=== PATIENT | female | born 1975 | race African-American/Black ===

== ENCOUNTER 2016-11-01 10:42 | Emergency (ER) | payer OTHER ==
[~2016-11-01] VITALS: Ht 175.3 cm; Wt 104.3 kg
[~2016-11-01 10:42] MED LIST: HYDROXYZINE HCL25 MG PO; PEPCID20 MG PO; PREDNISONE 20MG20 MG PO
--- NOTE | 2016-11-01 11:29 | ED CARDIAC/CP/PALPITATIONS ---
History of Present Illness General Chief Complaint: Chest Pain Stated Complaint: BIBA CHEST PAIN Source: patient, old records, EMS Exam Limitations: no limitations Allergies Coded Allergies: Sulfa (Sulfonamide Antibiotics) (Severe, THROAT CLOSURE 11/01/16) morphine (Severe, ANAPHYLAXIS 11/01/16) shellfish derived (Severe, ANAPHYLAXIS 11/01/16) venom-honey bee (Severe, ANAPHYLAXIS 11/01/16) adhesive (ALLERGY 11/01/16) aspirin (THROAT SWELLS 11/01/16) gluten (DIARRHEA 11/01/16) pineapple (RASH 11/01/16) Reconcile Medications Losartan Potassium 25 MG TABLET 1 TAB PO DAILY HEART (Reported) Triage Note: BIBA FROM WORK, C/O LEFT SIDED CHEST PAIN X 1 HOUR. STATES SHE WAS WORKING AT HER DESK WHEN PAIN STARTED. DENIES SOB. PMH: [place] X 2 . Triage Nurses Notes Reviewed? yes Onset: Just prior to arrival Duration: minute(s):, constant, continues in ED Timing: recent history Quality/Severity: moderate, severe, tightness Location: substernal Radiation: arms Activities at Onset: emotional stress Prior Chest Pain/Card Workup: heart attack (per report x 2, signed AMA) Nitro Today/Relief: 0.4 mg x 1, provided by ED, no relief Aspirin Today: no aspirin today (allergic) Associated Symptoms: dizziness, shortness of breath, nausea/vomiting LMP (ages 10-50): unknown : No Patient currently breastfeeds: No HPI: Prior to admission at a meeting patient developed heavy moderate to severe substernal chest pain radiating to her left arm associated with dizziness fatigue shortness of breath nausea constant. She currently has the pain. She denies fever chills vomiting diarrhea abdominal pain headache dysuria rash bleeding. She reports having to previous episodes 2 different hospitals with reported [place] and signed out AGAINST MEDICAL ADVICE. (JESSEE RODRIGUEZ,OTIS) Vital Signs & Intake/Output Vital Signs & Intake/Output ED Intake and Output 11/02 0000 11/01 1200 Intake Total Output Total Balance Patient 230 lb Weight Weight Reported by Patient Measurement Method Past History Travel History Traveled to [place] past 21 day No Medical History Any Pertinent Medical History? see below for history Cardiovascular: myocardial infarction Gastrointestinal: irritable bowel syndrome, CILIAC GASTROPARESIS Surgical History Surgical History: MULTIPLE COLONOSCOPIES/ENDOSCOPIES HIATAL HERNIA REPAIR LATERAL KNEE RELEASE BLADDER STIMULATOR Psychosocial History What is your primary language Polish Tobacco Use: Quit >30 days ago ETOH Use: occasional use Illicit Drug Use: denies illicit drug use Family History Hx Contributory? No (OTIS HOOKS MD) Review of Systems Review of Systems Constitutional: Reports: see HPI, malaise. EENTM: Reports: no symptoms. Respiratory: Reports: see HPI, short of breath. Cardiovascular: Reports: see HPI, chest pain. GI: Reports: see HPI, nausea. Genitourinary: Reports: no symptoms. Musculoskeletal: Reports: no symptoms. Skin: Reports: no symptoms. Neurological/Psychological: Reports: no symptoms. Hematologic/Endocrine: Reports: no symptoms. Immunologic/Allergic: Reports: no symptoms. All Other Systems: Reviewed and Negative (OTIS HOOKS MD) Physical Exam Physical Exam General Appearance: well developed/nourished, alert, awake, anxious, mild distress, obese Head: atraumatic, normal appearance Eyes: Bilateral: normal appearance, PERRL, EOMI. Ears, Nose, Throat: normal pharynx, normal ENT inspection Neck: normal inspection, supple, full range of motion, no midline tenderness Respiratory: normal breath sounds, chest non-tender, no respiratory distress, quiet respiration, lungs clear Cardiovascular: regular rate/rhythm, normal peripheral pulses, norml femoral pulses equa Peripheral Pulses: 4+ carotid (R), 4+ carotid (L) Gastrointestinal: normal bowel sounds, soft, non-tender, no organomegaly Back: normal inspection, normal range of motion Extremities: normal inspection, normal capillary refill, normal range of motion, no edema Neurologic/Psych: no motor/sensory deficits, awake, alert, oriented x 3, normal gait, normal mood/affect, 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 Skin: intact, normal color, warm/dry Lymphatic: no anterior cervical larissa (OTIS HOOKS MD) Core Measures ACS in differential dx? Yes Severe Sepsis Present: No Septic Shock Present: No (ALICJA RODRIGUEZ,WILLIAM) Progress Differential Diagnosis: AMI, atrial fibrillation, hypovolemia, musculoskeletal pain, pneumonia Plan of Care: Orders Procedure Date/time Status Heart Healthy Diet 11/01 D Active TROPONIN LEVEL 11/01 1428 Complete Add-on Test (ER Only) 11/01 1318 Active LIPASE 11/01 1128 Complete TSH REFLEX 11/01 1057 Complete TROPONIN LEVEL 11/01 1057 Complete MAGNESIUM 11/01 1057 Complete COMPREHENSIVE METABOLIC PANEL 11/01 1057 Complete CBC WITHOUT DIFFERENTIAL 11/01 1057 Complete B-TYPE NATRIURETIC PEP (BNP) 11/01 1057 Complete EKG 11/01 1046 Active Laboratory Tests 11/01/16 1448: Troponin I < 0.01 11/01/16 1128: Anion Gap 9, Estimated GFR > 60, BUN/Creatinine Ratio 17.5, Glucose 83, Calcium 9.4, Magnesium 2.0, Total Bilirubin 0.4, AST 22, ALT 29, Alkaline Phosphatase 74 , Troponin I < 0.01, [id number]-Ohwlwatkweo Pept 41.6, Total Protein 7.4, Albumin 4.5 , Globulin 2.9, Albumin/Globulin Ratio 1.6, Lipase 53, TSH &T3 &Free T4 Intrp 1.240, CBC w Diff NO MAN DIFF REQ, RBC 5.14, MCV 86.6, MCH 28.4, RDW 14.0, MPV 9.0, Gran % 75.1, Lymphocytes % 20.0 L, Monocytes % 4.1, Eosinophils % 0.5, Basophils % 0.3, Absolute Granulocytes 5.5, Absolute Lymphocytes 1.5, Absolute Monocytes 0.3, Absolute Eosinophils 0, Absolute Basophils 0, PUBS MCHC 32.8 L 3:42 PM PATIENT SIGNED OUT TO ME AT CHANGE OF SHIFT. REPEAT TROPONIN NEGATIVE. WILL FOLLOW UP WITH PCP. (WILLIAM HELM MD) Diagnostic Imaging: Viewed by Me: Radiology Read. Discussed w/RAD: Radiology Read. CXR Impression: no acute abnormality Initial ED EKG: normal axis, normal intervals, normal p-waves, normal QRS complex, normal sinus rhythm, no ST T wave changes Repeat EKG: unchanged Rhythm Strip: normal sinus rhythm Hand-Off Endorsed To: WILLIAM HELM MD Endorsed Time: 1500 Pending: labs Comments: Significant other report patient has violated her gluten restriction eating donuts yesterday and today. Finally improved after interventions, feels better. (OTIS HOOKS MD) Departure Departure Condition: Stable Clinical Impression Primary Impression: Chest pain syndrome Secondary Impressions: Dietary indiscretion Referrals: GIOVANY FRANKLIN MD (PCP/Family) Departure Forms: Customer Survey General Discharge Information (OTIS HOOKS MD) Departure Time of Disposition: 1542 Disposition: HOME OR SELF CARE Additional Instructions: PLEASE FOLLOW UP WITH YOUR ASSISTANT DEAN IN THE OFFICE. RETURN NEEDED. (ALICJA RODRIGUEZ,WILLIAM) Critical Care Note Critical Care Note Critical Care Time: non-applicable (ALICJA RODRIGUEZ,WILLIAM)
--- NOTE | 2016-11-01 11:31 | RADIOLOGY REPORT ---
EXAMINATION: CHEST 1 VIEW CLINICAL INFORMATION: Chest pain. COMPARISON: None. TECHNIQUE: An AP view of the chest is provided. FINDINGS: The cardiac silhouette is not enlarged. The mediastinal and hilar contours are unremarkable. There are neither pleural effusions nor pneumothoraces. There are no consolidations. The osseous structures are unremarkable. IMPRESSION: No evidence for acute disease.
[2016-11-01 11:37] LABS: ABSOLUTE BASOPHIL COUNT 0 /CUMM (0.0-0.2); ABSOLUTE EOSINOPHIL COUNT 0 /CUMM (0.0-0.7); ABSOLUTE GRANULOCYTE CT 5.5 /CUMM (1.4-6.5); ABSOLUTE LYMPH COUNT 1.5 /CUMM (1.2-3.4); ABSOLUTE MONOCYTE COUNT 0.3 /CUMM (0.10-0.60); BASOPHIL % 0.3 % (0.0-2.0); EOSINOPHIL % 0.5 % (0-5); GRANULOCYTE % 75.1 % (42.2-75.2); HEMATOCRIT 44.5 % (37-47); MEAN CORPUSCULAR HGB 28.4 PG (27.0-31.0); MEAN CORPUSCULAR HGB CONC 32.8 G/DL (33.0-37.0); MEAN CORPUSCULAR VOLUME 86.6 FL (81.0-99.0); PLATELET COUNT 270 /CUMM (130-400); RED BLOOD CELL CT 5.14 /CUMM (4.20-5.40); WHITE BLOOD CELL COUNT 7.3 /CUMM (4.8-10.8)
[2016-11-01] MEDS ORDERED: LOSARTAN POTASS25 M1 PO (11:41)
[2016-11-01 15:46] VITALS: BP 113/65
== END 2016-11-01 16:03 ==
LOC: ERH 10:42
PROVIDERS: Emergency Medicine
DX: R07.1 Chest pain on breathing (principal); R11.2 Nausea with vomiting, unspecified; R42 Dizziness and giddiness
CPT/HCPCS: 93005; 93010; 96374; 96375; J0131; J2765; J3490